=== PATIENT | female | born 1975 ===

== ENCOUNTER 2018-09-15 10:52 | Outpatient (CLI) | payer BC ==
--- NOTE | 2018-09-15 14:03 | CT ---
POSTCONTRAST SOFT TISSUE NECK CT: Date: 09/15/18 HISTORY: Thyroid cancer. Edema. Headache. Left-sided neck pain and swelling. COMPARISON: None. FINDINGS: Visualized brain parenchyma is unremarkable. Adequate aeration of the visualized paranasal sinuses and mastoid air cells. Bilateral ocular lenses are appropriately located. Both globes are intact. Retrobulbar fat is preserv ed. No obvious mass in the oral cavity. Midline fatty raphe of the tongue is preserved. Epiglottis has a normal caliber. Preepiglottic fat is preserved. There is no prevertebral soft tissue swelling. Symmetric attenuation of the parotid and submandibular glands. Symmetric attenuation of sternocleidom astoid muscles. Grossly, the great vessels of the neck are patent. No evidence of high grade central canal stenosis. There are degenerative change of the cervical spine . Evaluation of the contents of the central spinal canal and neural foramina are limited by technique . No evidence of lymphadenopathy by size criteria. There are nonenlarged bilateral Level I lymph nodes measuring 1.6 x 0.6 on the left and 0.8 x 0.6 cm on the right. At the level of the marker, there is no solid or cystic mass. No lymphadenopathy. Thyroid bed does not demonstrate any obvious masses or lymphadenopathy. If there is concern for resid ual thyroid tissue, nuclear medicine scan can be performed. IMPRESSION: 1. No abnormality at the level of the left neck palpable marker. 2. Bilateral nonspecific Level I lymph nodes. 3. No abnormal densities in the thyroid bed. Nuclear medicine imaging if there is concern for possib le residual microscopic thyroid tissue. POS: [facility]
== END 2018-09-15 10:53 | disposition home or self-care (01) ==
LOC: BICCT 10:52
PROVIDERS: ATTEND Internal Medicine Endocrinology, Diabetes & Metabolism
DX: R60.9 Edema, unspecified (principal); R51 Headache; Z85.850 Personal history of malignant neoplasm of thyroid
CPT/HCPCS: 70491